=== PATIENT | female | born 1975 | race Two or more races ===

== ENCOUNTER 2025-01-09 08:36 | Emergency (ER) | payer OTHER ==
[~2025-01-09] VITALS: Ht 162.6 cm; Wt 70.3 kg
[2025-01-09] MEDS ORDERED: COZAAR50 MG PO (08:43)
[2025-01-09] MEDS ORDERED: TOPROL XL25 M1 PO (08:43)
[2025-01-09] MEDS ORDERED: HYDROCHLOROTHIA25 MG PO (08:44)
[2025-01-09] MEDS ORDERED: CLONAZEPAM1 MG PO (08:44)
[2025-01-09] MEDS ORDERED: ADULT TUSS100 MG/51 PO (08:44)
[2025-01-09] MEDS ORDERED: TRAZODONE HCL150 MG PO (08:45)
[2025-01-09 09:25] LABS: BASO % 0.6 % (0.1-1.2); EOS # 0.08 (0.04-0.54); EOS % 2.4 % (0.7-7.0); LYMPH # 1.18 (1.18-3.74); LYMPH % 36.0 % (19.3-53.1); MEAN PLATELET VOLUME 9.10 fl (9.4-12.4); MONO # 0.35 (0.24-0.82); MONO % 10.7 % (4.7-12.5); NEUT # 1.64 (1.56-6.13); NEUT % 50.0 % (34.0-71.1); RED CELL DISTRIBUTION WIDTH 11.4 % (11.6-14.4)
[2025-01-09 09:44] LABS: URINE APPEARANCE Clear; URINE BILIRRUBIN Negative (NEGATIVE); URINE BLOOD Negative; URINE COLOR Yellow; URINE GLUCOSE Negative (NEGATIVE); URINE KETONE Negative (NEGATIVE); URINE LEUKOCYTE Negative; URINE NITRATE Negative; URINE PROTEIN Negative (NEGATIVE); URINE UROBILINOGEN 0.2 E.U./dl
[2025-01-09 09:46] LABS: URINE BACTERIA 26.4 uL (0.0-1933); URINE EPITHELIAL CELLS 2.9 uL (0.0-38.8); URINE RBC 3.9 uL (0.0-20.8)
[2025-01-09 09:50] LABS: URINE CAST 0.00 uL (0.0-1.40); URINE WBC 0.4 uL (0.0-23.2)
[2025-01-09] MEDS ORDERED: KETOROLAC TROMETHAMINE 30 MG VIAL IV ONE (10:15)
== END 2025-01-09 12:03 | disposition home or self-care (01) ==
LOC: ER 08:36
PROVIDERS: Emergency Medicine
DX: N92.3 Ovulation bleeding (principal); I10 Essential (primary) hypertension; N83.201 Unspecified ovarian cyst, right side